=== PATIENT | female | born 1950 | race Caucasian/White ===

== ENCOUNTER 2017-07-29 07:40 | Day surgery (SDC) | payer OTHER, MEDICARE ==
[2017-07-24 12:49] VITALS: BMI 23.0
[2017-07-29] MEDS ORDERED: PROPOFOL 20 ML ONE ×2 (07:51)
[2017-07-29] MEDS ORDERED: LIDOCAINE HCL/PF 2% SDV 5ML VIAL ONE (07:54)
[2017-07-29 09:36] VITALS: TEMP 98
[2017-07-29 12:12] VITALS: BP 100/52; PULSE 74
== END 2017-07-29 10:10 | disposition home or self-care (01) ==
LOC: FASU-ENDO 07:40
PROVIDERS: ATTEND Internal Medicine Gastroenterology
PROC: 0DJD8ZZ Inspection of Lower Intestinal Tract, Via Natural or Artificial Opening Endoscopic (ICD-10-PCS; principal; 2017-07-29 09:02)
DX: Z86.010 Personal history of colon polyps (principal); Z80.0 Family history of malignant neoplasm of digestive organs

== ENCOUNTER 2020-12-24 05:45 | Day surgery (SDC) | payer OTHER, MEDICARE ==
[2020-12-20 17:58] VITALS: BMI 18.1
[2020-12-24] MEDS ORDERED: MIDAZOLAM HCL 2 MG/2 ML SINGLE DOSE VIAL ONE (11:24)
[2020-12-24 16:52] VITALS: BP 121/65; PULSE 54; TEMP 98.1
== END 2020-12-24 16:20 | disposition home or self-care (01) ==
LOC: JRADIR 05:45
PROVIDERS: ATTEND Internal Medicine Gastroenterology
PROC: 0FB13ZX Excision of Right Lobe Liver, Percutaneous Approach, Diagnostic (ICD-10-PCS; principal; 2020-12-24)
DX: K76.0 Fatty (change of) liver, not elsewhere classified (principal)
CPT/HCPCS: 47000; 76942-TC; 87899; 88305-TC; 88312-TC; 88313-TC; 88342-TC

== ENCOUNTER 2024-07-19 08:28 | Emergency (ER) | payer OTHER, MEDICARE ==
[2024-07-19 08:39] VITALS: BP 136/66; PULSE 72; RESP 18; TEMP 99; BMI 17.9
[2024-07-19] MEDS ORDERED: ACETAMINOPHEN 500 MG TABLET (FP) ONE (09:17)
[2024-07-19] MEDS: ACETAMINOPHEN 500 MG TABLET (FP) PO ONE (09:19)
[2024-07-19 09:33] LABS: HEMATOCRIT 48.8 % (32.4-45.2); HEMOGLOBIN 15.8 G/dL (10.7-15.3); MCH 32.1 pg (25.7-33.7); MCHC 32.4 g/dl (32.0-36.0); MEAN CELL VOLUME 99.2 fl (80-96); MEAN PLT VOLUME 9.1 fl (7.5-11.1); PLATELET COUNT 241.1 10^3/uL (134-434); RBC 4.92 10^6/uL (3.60-5.2); RDW 13.9 % (11.6-15.6); WHITE BLOOD COUNT 7.4 10^3/uL (4.0-10.8)
[2024-07-19 09:38] LABS: ALBUMIN 4.7 g/dl (3.4-5.0); BILIRUBIN,TOTAL 1.6 mg/dl (0.2-1); POTASSIUM 4.5 mmol/L (3.5-5.1); TOT PROT 7.1 g/dl (6.4-8.2)
[2024-07-19 10:11] LABS: PLATELET ESTIMATE ADEQUATE
== END 2024-07-19 10:31 | disposition home or self-care (01) ==
LOC: FER 08:28
DX: M79.621 Pain in right upper arm (principal); M79.622 Pain in left upper arm; M54.6 Pain in thoracic spine; X50.0XXA Overexertion from strenuous movement or load, initial encounter
CPT/HCPCS: 36415; 71046-TC-FY; 80053; 84484; 85027; 93005; 99285-25